=== PATIENT | male | born 1965 | race Caucasian/White ===

== ENCOUNTER 2016-11-22 08:10 | Day surgery (SDC) | payer OTHER ==
[2016-11-22] VITALS (7 sets, daily range): BP systolic 144–189; BP diastolic 83–108; PULSE 58–80; RESP 16–20; TEMP 97.4–98.5; O2SAT 94–97
[~2016-11-22] VITALS: Ht 182.9 cm; Wt 76.4 kg
[2016-11-22] MEDS ORDERED: LORA-392 PO (08:55)
[2016-11-22] MEDS ORDERED: LIPI20TA PO (08:55)
[2016-11-22] MEDS ORDERED: COQ150CA PO (08:55)
[2016-11-22] MEDS ORDERED: WARF-23 PO (08:55)
[2016-11-22] MEDS ORDERED: VALS1TAB63 PO (08:55)
[2016-11-22] MEDS ORDERED: SODIUM CHLOR 0.9% 1000 ML INJ 1,000 ML IV SCH (09:00)
[2016-11-22 09:16] LABS: AUTOMATED NEUTROPHIL # 5.8 TH/MM3 (1.8-7.7); BASOPHIL # 0.1 TH/MM3 (0-0.2); BASOPHIL % 0.6 % (0.0-2.0); EOSINOPHIL # 0.3 TH/MM3 (0-0.4); EOSINOPHIL % 2.7 % (0.0-4.0); HEMATOCRIT 43.7 % (39.0-51.0); HEMO FLAGS DIFF FINAL; LYMPH % 28.7 % (9.0-44.0); LYMPHOCYTE # 2.7 TH/MM3 (1.0-4.8); MEAN CELL VOLUME 85.6 FL (80.0-100.0); MONO % 6.1 % (0.0-8.0); NEUT % 61.9 % (16.0-70.0); PLATELET COUNT 199 TH/MM3 (150-450); RED BLOOD COUNT 5.11 MIL/MM3 (4.50-5.90); RED CELL DISTRIBUTION WIDTH 14.6 % (11.6-17.2); WHITE BLOOD COUNT 9.4 TH/MM3 (4.0-11.0)
[2016-11-22 09:19] LABS: APTT (PATIENT) 24.4 SEC (24.3-30.1); PROTHROMBIN TIME - PATIENT 10.6 SEC (9.8-11.6)
[2016-11-22 09:29] LABS: BICARBONATE 25.2 MEQ/L (21.0-32.0); POTASSIUM 3.6 MEQ/L (3.5-5.1)
[2016-11-22] MEDS ORDERED: MIDAZOLAM HCL 5 MG/5 ML VIAL ONE (10:15)
[2016-11-22] MEDS ORDERED: fentaNYL CITRATE 250 MCG/5 ML AMP ONE (10:16)
--- NOTE | 2016-11-22 10:49 | PD.RAD ---
Post Procedure Progress Note Pre Procedure Diagnosis: (1) Hypertension Post Procedure Diagnosis: (1) Hypertension Procedure Date: Nov 22, 2016 Supervising Radiologist: Eric Lester JR Proceduralist/Assist: RT Sai(R), RT Adryan(R) Anesthesia: Conscious Sedation Plan of Activity Patient to Unit: ROPU Patient Condition: Good See PACS Report for procedural detail/treatment Vascular-Arterial Procedure Procedure 1 Procedure Site: Right Leg Procedure(s): Angiogram Access Access Site(s): Right Femoral Artery Findings: Patient for renal angiography. 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 Access performed on right MARKETING ASSISTANT. Unable to pass wire. 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 Discussed case with patient. Discussed performing radial approach -vs- CTA. Opted for CTA. Plan For CTA Jr. Trevon,Eric Monte MD Nov 22, 2016 10:49
[2016-11-22] MEDS ORDERED: IODIXANOL 320 MG/ML 50 ML VIAL (for RAD SPEC) I-ARTERIAL ONE (11:08)
[2016-11-22] MEDS ORDERED: IOHEXOL 350 MG/ML 10 ML VIAL (for RAD DIAG) IV ONE (12:26)
--- NOTE | 2016-11-22 14:19 | RADRPT ---
EXAM DATE/TIME: 11/22/2016 11:19 [facility] COMPARISON: No previous studies available for comparison. I have a comparison study from [facility] r 2015. INDICATIONS : Evaluate for occlusion. IV CONTRAST: 100 cc Omnipaque 350 (iohexol) IV ORAL CONTRAST: No oral contrast ingested. RADIATION DOSE: 12.5 CTDIvol (mGy) MEDICAL HISTORY : Stroke. Cardiovascular disease Renal artery stenosis SURGICAL HISTORY : None. ENCOUNTER: Initial ACUITY: 1 day PAIN SCALE: 0/10 LOCATION: Bilateral abdomen. TECHNIQUE: Volumetric scanning was performed using a multi-row detector CT scanner. The data was post processed with a variety of visualization algorithms including full volume maximum intensity projection, multi -planar sliding thin slab reformation, curved planar reformation, and surface rendering techniques. Using automated exposure control and adjustment of the mA and/or kV according to patient size, radiat ion dose was kept as low as reasonably achievable to obtain optimal diagnostic quality images. DICOM format image data is available electronically for review and comparison. FINDINGS: AORTA/INFLOW: Soft and partially calcified atheromatous plaque is seen involving the infrarenal aorta generating an irregular luminal contour. Aorta remains patent. The right common iliac artery is diffusely diseased and there is occlusion of the right external iliac artery. This is a new finding from a prior study. The left common iliac artery is patent and contains a stent which is patent. The left external iliac artery is patent. A single renal artery seen on the right. This contains a stent which is patent. Th e left kidney is supplied by a small caliber main renal artery and lower pole accessory artery. The m ain renal artery quickly bifurcates. This is patent. The lower pole accessory renal artery is occlude d at its origin. There is contrast throughout its course via a retrograde fashion. The celiac, SMA, a nd ARTUR are patent. OTHER STRUCTURES: A small focal area of cortical scarring is seen involving the lower pole the left kidney. A 5 mm roun ded low attenuation focus is seen involving the tip of the liver. A left inguinal hernia contains sig moid colon. A degenerative lumbar spine. CONCLUSION: 1. Since the previous CTA there has been stenting of the right renal artery. This is patent. 2. The left kidney is supplied by 2 arteries. There is a small caliber main renal artery which is pat ent. There is a lower pole accessory renal artery that is occluded at its origin but there is retrogr nazario filling of that artery therefore there is good collateralization to that supplied segment of the kidney. There is an area of scarring involving the cortex of the lower pole the left kidney which cou ld relate to prior trauma or infection. A small infarct could have a similar appearance. 3. Occlusion of the right external iliac artery. 4. Patency of the left inflow is new from the prior study. 5. Tiny hepatic cyst. 6. Left inguinal hernia containing the sigmoid colon. Eric Lester Jr., MD on November 22, 2016 at 12:37 Board Certified Radiologist. This report was verified electronically.
--- NOTE | 2016-11-23 14:27 | RADRPT ---
EXAM DATE/TIME: 11/22/2016 10:04 [facility] COMPARISON: No previous studies available for comparison. INDICATIONS : Patient presents with uncontrolled hypertention in need of renal angiogram for further evaluation. Ou tside CTA shows occlusion of the left iliac system. MEDICAL HISTORY : CAD Afib HTN Bilat renal stenosis SURGICAL HISTORY : Right renal stent Left leg stent Cardiac stent Facial reconstruction ENCOUNTER: Initial ACUITY: > 1 year PAIN SCORE: 0/10 LOCATION: N/A FLUORO TIME: 0.6 minutes IMAGE SERIES: 1 ACCESS SITE: Right Femoral artery SEDATION TIME: 18 minutes CONTRAST: 1.) 5 cc Visipaque (iodixanol) MEDICATION(S): 1.) 3 mg midazolam (Versed) IV 2.) 150 mcg fentanyl (Sublimaze) IV PROCEDURE : 1. Ultrasound-guided puncture of the access site. 2. Conscious sedation with continuous EKG and Oximetry monitoring. 3. Angiography of the right common femoral artery The risks, benefits and alternatives to the procedure were explained and verbal and written consent w as obtained. The site was prepped in sterile fashion. Full sterile technique was used, including ca p, mask, sterile gloves and gown and a large sterile sheet. Hand hygiene and 2% chlorhexidine and/or betadine/alcohol prep was utilized per protocol for cutaneous antisepsis. The skin and subcutaneous tissues were infiltrated with local anesthetic solution. With ultrasound and fluoroscopic guidance the right common femoral artery was punctured. Attempts at passing a wire centrally were not successful. A limited angiogram was performed through the access ne edle highlighting chronic occlusion of the junction of the external iliac artery and common femoral a rtery. Prior outside CTA shows occlusion of the left iliac system. I discussed with the patient acces s in the left arm versus performing CTA. We opted for CTA. The puncture site was closed with manual pressure and hemostasis was obtained. The patient tolerated the procedure well and there were no complications. Conscious sedation was performed with the prescribed dosages and duration as above in the presence of an independent trained radiology nurse to assist in the monitoring of the patient. EKG and oximetry remained stable throughout the procedure. CONCLUSION: Diagnostic angiography was planned. The right inflow is chronically occluded. The left inflow was occ luded on the outside CTA from April 2016. We discussed left arm access versus performing CTA. We o pted for CTA. Please see that report separately. Eric Lester Jr., MD on November 23, 2016 at 14:22 Board Certified Radiologist. This report was verified electronically.
== END 2016-11-22 13:45 | disposition home or self-care (01) ==
LOC: HROP 08:10 → HRIP 08:13 → HROP 13:45
PROVIDERS: ATTEND Internal Medicine Nephrology
DX: I10 Essential (primary) hypertension (principal); I70.0 Atherosclerosis of aorta; I74.5 Embolism and thrombosis of iliac artery; N28.0 Ischemia and infarction of kidney; I25.10 Atherosclerotic heart disease of native coronary artery without angina pectoris; I48.91 Unspecified atrial fibrillation; Z95.5 Presence of coronary angioplasty implant and graft; Z86.73 Personal history of transient ischemic attack (TIA), and cerebral infarction without residual deficits; Z96.0 Presence of urogenital implants
CPT/HCPCS: 36140; 74174; 75710; 76937; 80048; 85025; 85610; 85730; 99152; 99153; C1769; C1887; J2250; J3010; Q9967

== ENCOUNTER 2016-11-30 11:45 | Emergency (ER) | payer OTHER ==
[~2016-11-30] VITALS: Ht 182.9 cm; Wt 77.0 kg
[~2016-11-30 11:45] MED LIST: COQ150CA PO; LIPI20TA PO; LORA-392 PO; VALS1TAB63 PO; WARF-23 PO
[2016-11-30 11:52] VITALS: BP 195/110; PULSE 62; RESP 16; O2SAT 97
[2016-11-30 12:00] VITALS: BP 177/108; PULSE 69; RESP 16; O2SAT 98
[2016-11-30] MEDS ORDERED: hydrALAZINE HCL 20 MG/ML VIAL IV PUSH ONE (12:15)
--- NOTE | 2016-11-30 12:43 | PD ---
HPI Chief Complaint: Hypertension Time Seen by Provider: 12:09 Travel History International Travel<30 days: No Contact w/Intl Traveler<30days: No Traveled to known affect area: No History of Present Illness HPI This is a 51-year-old male who reports that he has intractable hypertension who presents to the emergency department with high blood pressure. He was at home when he started to have a mild headache and felt dizzy, constant, with no nausea or vomiting and no chest pain, difficulty walking or difficulty talking. He checked his blood pressure and it was 220. He took clonidine and called EMS. The patient has had problems with blood pressure for months. He is out of work due to his difficulty managing his blood pressure. 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 The patient reports a mild headache and some dizziness. PFSH Past Medical History Hx Anticoagulant Therapy: Yes (COUMADIN) Anxiety: Yes Cancer: No Cardiovascular Problems: Yes ([place], A-FIB, HTN, HYPERALDOSTERONISM) Cerebrovascular Accident: Yes Diabetes: No Endocrine: No Genitourinary: No Hepatitis: No Hiatal Hernia: No Hypertension: Yes Immune Disorder: No Medical other: Yes (PAD) Musculoskeletal: No Neurologic: Yes (STROKE APR 16) Psychiatric: Yes (ANXIETY) Reproductive: No Respiratory: No Immunizations Current: No Thyroid Disease: No Influenza Vaccination: No Past Surgical History AICD: No Cardiac Surgery: Yes (CARDIAC STENT) Joint Replacement: No Pacemaker: No Other Surgery: Yes (RT KIDNEY STENT) Social History Alcohol Use: No Tobacco Use: No Substance Use: No Allergies-Medications (Allergen,Severity, Reaction): Coded Allergies: Carvedilol (Verified Allergy, Intermediate, Hypotension, 11/30/16) Spironolactone (Verified Allergy, Intermediate, Tachycardia, 11/30/16) Reported Meds & Prescriptions Reported Meds & Active Scripts Active Reported Coq10 (Coenzyme Q10 (Ubidecarenone)) 50 Mg Cap 100 Mg PO DAILY Lipitor (Atorvastatin Calcium) 20 Mg Tab 20 Mg PO DAILY Ativan (Lorazepam) 0.5 Mg Tab 0.5 Mg PO DAILY PRN Warfarin 5 Mg Tab 5 Mg PO DAILY Valsartan 40 Mg Tab 40 Mg PO BID Review of Systems Except as stated in HPI: all other systems reviewed are Neg Physical Exam Narrative GENERAL:Well appearing, no acute distress SKIN: Focused skin assessment warm and dry. HEAD: Atraumatic. Normocephalic. EYES: Pupils equal and round. No injection or drainage. ENT: Moist mucous membranes NECK: Trachea midline. CARDIOVASCULAR: Regular rate and rhythm. No murmur appreciated. RESPIRATORY: Clear to auscultation. Breath sounds equal bilaterally. GASTROINTESTINAL: Abdomen soft, non-tender, nondistended. MUSCULOSKELETAL: No obvious deformities. NEUROLOGICAL: Awake and alert. No obvious cranial nerve deficits. Moving all extremities. PSYCHIATRIC: Appropriate mood and affect; insight and judgment normal. Data Data Last Documented VS Vital Signs Date Time Temp Pulse Resp B/P Pulse Ox O2 Delivery O2 Flow Rate FiO2 11/30/16 13:10 69 18 164/99 98 Room Air Orders Complete Blood Count With Diff (11/30/16 12:09) Comprehensive Metabolic Panel (11/30/16 12:09) ^ Insert Iv (11/30/16 12:09) Hydralazine Inj (Apresoline Inj) (11/30/16 12:15) Electrocardiogram (11/30/16 ) Labs Laboratory Tests Test 11/30/16 12:20 White Blood Count 7.1 TH/MM3 Red Blood Count 5.31 MIL/MM3 Hemoglobin 15.4 GM/DL Hematocrit 45.3 % Mean Corpuscular Volume 85.4 FL Mean Corpuscular Hemoglobin 29.1 PG Mean Corpuscular Hemoglobin 34.1 % Concent Red Cell Distribution Width 14.3 % Platelet Count 234 TH/MM3 Mean Platelet Volume 8.0 FL Neutrophils (%) (Auto) 65.9 % Lymphocytes (%) (Auto) 26.3 % Monocytes (%) (Auto) 5.5 % Eosinophils (%) (Auto) 1.8 % Basophils (%) (Auto) 0.5 % Neutrophils # (Auto) 4.7 TH/MM3 Lymphocytes # (Auto) 1.9 TH/MM3 Monocytes # (Auto) 0.4 TH/MM3 Eosinophils # (Auto) 0.1 TH/MM3 Basophils # (Auto) 0.0 TH/MM3 CBC Comment DIFF FINAL Differential Comment Sodium Level 141 MEQ/L Potassium Level 4.0 MEQ/L Chloride Level 108 MEQ/L Carbon Dioxide Level 23.8 MEQ/L Anion Gap 9 MEQ/L Blood Urea Nitrogen 13 MG/DL Creatinine 1.09 MG/DL Estimat Glomerular Filtration 72 ML/MIN Rate Random Glucose 91 MG/DL Calcium Level 9.8 MG/DL Total Bilirubin 0.4 MG/DL Aspartate Amino Transf 19 U/L (AST/SGOT) Alanine Aminotransferase 19 U/L (ALT/SGPT) Alkaline Phosphatase 83 U/L Total Protein 8.0 GM/DL Albumin 3.9 GM/DL MDM Medical Decision Making Medical Screen Exam Complete: Yes Emergency Medical Condition: Yes Interpretation(s) Hypertension, normal sinus rhythm with no ST changes Differential Diagnosis Hypertensive urgency, hypertensive emergency, rebound hypertension Narrative Course This is a 51-year-old male who presents to the emergency department with high blood pressure. He says he has a mild headache and dizziness in the setting of blood pressure and this is always how he feels when his blood pressure. He brings in a journal which includes 4 days of blood pressure readings all half an hour to an hour apart. Each morning his blood pressure is in the 140s systolic. While the patient obviously does have dramatic spikes in his blood pressure, I think there are some problems in the way that he's been managing it. I advised the patient that I thought he should check his blood pressure only once a day and that frequent blood pressure checks are likely contributing to some of his problems. I also don't think clonidine is a good medication for him as it likely causing rebound hypertension. I think the patient would benefit from a subspecialist evaluation as his preoccupation with his blood pressure is clearly disabling. I said unfortunately were limited diagnostics we can perform in the emergency department. He was hopeful that we could get an endocrinology consultation, which is unfortunately an unrealistic expectation in our emergency department. Patient was given hydralazine, labs are obtained which are reassuring and EKG is reassuring. I think patient can be discharged home and follow-up with his primary care physician. I do think the patient was dissatisfied with his visit. He had expectations that he would see an cone machine operator and he was in disagreement with me about the importance of the frequency of his blood pressure checks. I also did express some concern that he's not working, because I think he would benefit from keeping functional and staying busy. He was upset with this conversation as well. Diagnosis Primary Impression: Hypertension Qualified Code: I10 - Hypertension, unspecified type Patient Instructions: General Instructions Additional Instructions: If you develop severe chest pain, shortness of breath, sweating, lightheadedness , dizziness or difficulty breathing return to the emergency department immediately. Followup with your primary care physician in 2-3 days if your symptoms are not resolved. Med/Other Pt SpecificInfo: No Change to Meds Disposition: 01 DISCHARGE HOME Condition: Stable Samina Pop MD Nov 30, 2016 12:43
[2016-11-30 12:44] LABS: AUTOMATED NEUTROPHIL # 4.7 TH/MM3 (1.8-7.7); BASOPHIL % 0.5 % (0.0-2.0); EOSINOPHIL # 0.1 TH/MM3 (0-0.4); EOSINOPHIL % 1.8 % (0.0-4.0); HEMATOCRIT 45.3 % (39.0-51.0); HEMO FLAGS DIFF FINAL; LYMPH % 26.3 % (9.0-44.0); LYMPHOCYTE # 1.9 TH/MM3 (1.0-4.8); MEAN CELL VOLUME 85.4 FL (80.0-100.0); MEAN CORPUSCULAR HEMOGLOBIN 29.1 PG (27.0-34.0); MEAN CORPUSCULAR HGB CONC 34.1 % (32.0-36.0); MONO % 5.5 % (0.0-8.0); NEUT % 65.9 % (16.0-70.0); PLATELET COUNT 234 TH/MM3 (150-450); RED BLOOD COUNT 5.31 MIL/MM3 (4.50-5.90); RED CELL DISTRIBUTION WIDTH 14.3 % (11.6-17.2); WHITE BLOOD COUNT 7.1 TH/MM3 (4.0-11.0)
[2016-11-30 13:08] LABS: ALT (GPT) 19 U/L (12-78); ANION GAP 9 MEQ/L (5-15); AST (GOT) 19 U/L (15-37); BICARBONATE 23.8 MEQ/L (21.0-32.0); BLOOD UREA NITROGEN 13 MG/DL (7-18); CHLORIDE 108 MEQ/L (98-107); GLOMERULAR FILTRATION RATE 72 ML/MIN (>89); SODIUM (NA) 141 MEQ/L (136-145)
[2016-11-30 13:10] VITALS: BP 164/99; PULSE 69; RESP 18; O2SAT 98
[2016-11-30 13:11] LABS: ALKALINE PHOSPHATASE 83 U/L (45-117); TOTAL BILIRUBIN ADULT 0.4 MG/DL (0.2-1.0)
--- NOTE | 2016-12-01 11:40 | EKG ---
Date Performed: 11/30/2016 Time Performed: 12:27:23 PTAGE: 51 years EKG: Sinus rhythm NORMAL ECG NO PREVIOUS TRACING DOCTOR: José Miguel Win Interpretating Date/Time 12/01/2016 11:39:11
== END 2016-11-30 13:39 | disposition home or self-care (01) ==
LOC: NEPD 11:45
DX: I10 Essential (primary) hypertension (principal)
CPT/HCPCS: 80053; 85025; 93005; 96374; 99284; J0360